=== PATIENT | male | born 1980 | race Caucasian/White ===

== ENCOUNTER → 2018-03-10 11:46 | Outpatient (CLI) | payer OTHER, SELFPAY ==
--- NOTE | 2018-03-10 | DI.CT.S_ITS ---
PROCEDURE: CT SOFT TISSUE NECK W CON INDICATIONS: FRONTAL FOREHEAD MASS TECHNIQUE: After the administration of intravenous contrast, 3.0 mm axial sections acquired from the sella to the aortic arch. Additional oblique axial 3.0 mm sections acquired through the pharynx. 3 mm thick coronal and sagittal reformats were generated. For radiation dose reduction, the following was used: automated exposure control. COMPARISON: None. FINDINGS: Image quality: Excellent. Lymph nodes: No enlarged lymph nodes seen throughout the neck. Vessels: Visualized vasculature appears patent. Neck spaces: The oropharynx, nasopharynx, and pharynx demonstrate no mucosal lesions. The vocal cords, false vocal cords, pyriform sinuses, epiglottis, vallecula, and tongue base all appear normal. Extramucosal spaces appear unremarkable. Glands: The parotid and submandibular glands appear normal. Thyroid gland contains a partially calcified 1.1 cm diameter nodule in the left lobe. Miscellaneous: Visualized brain and orbits appear normal. Lung apices appear clear. Superficial soft tissues appear normal. Bones: No suspicious bony lesions. Visualized sinuses and mastoids appear unremarkable. IMPRESSION: 1. No abnormal mass identified. 2. No lymphadenopathy based on size criteria. 3. 1.1 cm partially calcified left thyroid nodule. Dictated by: Awilda Davis MD, PhD on 03/10/2018 at 17:23 Approved by: Awilda Davis MD, PhD on 03/10/2018 at 17:30
--- NOTE | 2018-03-10 12:30 | DI.CT.S_ITS ---
PROCEDURE: CT HEAD/BRAIN WO/W CON INDICATIONS: frontal forehead mass TECHNIQUE: 4.5 mm thick angled axial sections acquired from the foramen magnum to the vertex before and after the administration of intravenous contrast, with coronal and sagittal reformats. For radiation dose reduction, the following was used: automated exposure control, adjustment of mA and/or kV according to patient size. COMPARISON: None. FINDINGS: Image quality: Excellent. CSF Spaces: Basal cisterns are patent. No extra-axial fluid collections. Ventricles are normal in size and shape. Brain: No midline shift. No intracranial bleeds or masses. No abnormal intracranial enhancement. Dowell-white interface appears normal. Skull and face: Calvarium and visualized facial bones appear intact, without suspicious lesions. There is a 0.7 x 2.6 x 2.1 cm left paramedian scalp lesion deep to a metallic BB localizer placed on clinically palpable forehead mass. The lesion is a subgaleal. Lesion demonstrates density measurements of -103 Hounsfield units. No postcontrast enhancement is associated lesion. No bony destruction or bony remodeling is associated lesion. Sinuses: Visualized sinuses and mastoids are clear. IMPRESSION: 0.7 x 2.6 x 2.1 cm left forehead lesion corresponds to clinically palpable mass. Lesion has imaging characteristics most compatible with subgaleal lipoma. Dictated by: Awilda Davis MD, PhD on 03/10/2018 at 17:40 Approved by: Awilda Davis MD, PhD on 03/10/2018 at 17:48
== END ==
PROVIDERS: PCP Student in an Organized Health Care Education/Training Program; Visit Provider Surgery
DX: R22.0 Localized swelling, mass and lump, head (principal); E04.1 Nontoxic single thyroid nodule
CPT/HCPCS: 70470; 70491; Q9967

== ENCOUNTER 2018-06-02 08:53 | Day surgery (SDC) | payer OTHER, SELFPAY ==
[2018-06-02] VITALS (9 sets, daily range): BP systolic 109–131; BP diastolic 63–87; PULSE 66–94; RESP 9–16; TEMP 36.2–37.1; O2SAT 94–99; BMI 32.7
--- NOTE | 2018-06-02 | PATH_ITS ---
[facility] Accession Number: [id number] . 01 Material submitted: . LEFT FOREHEAD . 01 Clinical history: . SUBGALEAL MASS . 02 Diagnosis: Tissue From Left Side of Forehead: Lipoma, negative for significant atypia. MRV/06/05/2018 . 02 Electronically signed: . Hudson Molina MD, Pathologist NPI- [id number] . 01 Gross description: . Received in formalin, labeled left forehead subgaleal mass, is a piece of pale harris-yellow rubbery adipose tissue (2.8 x 2.3 x 0.6 cm) with a homogeneous unremarkable cut surface. The tissue is inked black. Wire Frame Lampshade Maker serial sections submitted in cassette A1. ([id number]) Additional sections: (A2, A3) remaining tissue. Specimen is now entirely submitted. ([id number]) /MRV . 02 Pathologist provided ICD-10: D17.0 . 02 CPT . 195809 Performed at: 01 [facility] [address] [id number] MD Shane Miranda MD Phone: [phone] Performed at: [facility] [address] [place], [place] [id number] MD Ryan Kim MD Phone: [phone]
[2018-06-02] MEDS: LACTATED RINGERS 1,000 ML 42 ML IV (09:21)
--- NOTE | 2018-06-02 09:47 | PM.HP.1 ---
History of Present Illness Date Patient Seen: 06/02/18 Time Patient Seen: 09:48 Chief complaint: excision forhead mass Narrative: 38-year-old otherwise healthy male with enlarging subcutaneous cystic mass of the forehead which is now causing pain, discomfort, and occasional dysesthesias. CT scan revealed no intracranial component or involvement with the periosteum. No paralysis of facial muscles or weakness of facial muscles. No change in vision. No drainage from the area. Patient History Family & Social History Social History: household members spouse,children Tobacco & Substance use: Smoking Status Never smoker alcohol intake current Meds Home Medications Medication Instructions Recorded Confirmed Type fluticasone 50 mcg/actuation nasal 1 spray NASAL DAILY PRN 02/25/18 05/22/18 History spray,suspension ibuprofen PO 02/25/18 02/25/18 History Allergies Allergy/AdvReac Type Severity Reaction Status Date / Time No Known Drug Allergies Allergy Unverified 03/23/18 17:10 Review of Systems Review of Systems All systems reviewed & are unremarkable except as noted in HPI and below Exam Vital Signs (past 8 hours): - 06/02/18 09:04 Temperature 97.2 F L Pulse Rate 68 Respiratory Rate 16 Blood Pressure 125/68 Pulse Oximetry 95 Oxygen Delivery Method Room Air Narrative Exam Narrative: Patient once again seen and examined today. Alert oriented x3. Subcutaneous mass is unchanged in the left frontal forehead region just below the hairline. Cranial nerves 2-12 are grossly intact bilaterally. Lesion is mobile. no parotid masses or lymphadenopathy no cervical lymphadenopathy or masses. Trachea is midline. Chest clear to auscultation bilaterally. Regular rate rhythm abdomen soft, nondistended, nontender extremities show no clubbing, cyanosis, or edema Objective Labs Labs: no new laboratory or radiographic studies for review. CT scan is as above. Of note, he did have a calcified left thyroid nodule. I have discussed this with him. Assessment & Plan Plan: Assessment/Plan Narrative: 38-year-old male with symptomatic enlarging subcutaneous cystic mass of the left forehead region. We will plan excision of the mass. He will subsequently require evaluation with ultrasound-guided fine-needle aspiration biopsy of the thyroid mass once he is healed from the forehead procedure. Technical details of the procedures were discussed at length. Risks, benefits, alternatives were explained. Risks of excision of the forehead mass including but not limited to anesthesia, bleeding, hematoma, seroma, pain, infection, scar, cosmetic deformity, recurrent mass, frontalis muscle paralysis, injury to facial nerve branches including those involving the eyelid, permanent numbness, need for further surgery were discussed in detail. All questions were answered to his satisfaction, and he voiced understanding. Consent was placed on the chart. We will proceed as above.
[2018-06-02] MEDS: CEFAZOLIN 2 GM/100 ML FROZ.PIGGY IV (09:55)
[2018-06-02] MEDS: LIDOCAINE 1% W/EPI INJ 20 ML INJ (10:31)
[2018-06-02] MEDS: BUPIVACAINE 0.5% (PF) VIAL 30 ML INJ (10:32)
--- NOTE | 2018-06-02 11:21 | P.OP_ITS ---
Operative Date/Time/Diagnoses Date of procedure: 06/02/18 Time of procedure: 11:15 Pre-op diagnosis: symptomatic subcutaneous mass left forehead region Post-op diagnosis: other ( symptomatic left forehead subgaleal mass measuring 3 x 3 cm in greatest diameter) Procedure & Clinicians Procedure: excision of 3 x 3 x 2 cm subgaleal mass left forehead region Same procedure as scheduled: Yes Indications: 38-year-old male with slowly enlarging subcutaneous mass of left forehead. Excision was recommended after CT scan showed no intracranial or bony involvement. Surgeon: Massimo Palmer Click Yes if Unassisted: Yes Anesthesia Type: General Operative Notes Findings: 1. Encapsulated subgaleal mass that was actually somewhat adherent to the periosteum of the frontal bone measuring 3 x 3 x 2 cm 2. No evidence of skin invasion or muscular invasion of the frontalis muscle 3. No evidence of adjacent lesions or abnormalities Closure Type: primary Specimen(s): other ( left forehead subgaleal mass) Implants & Drains: none Estimated Blood Loss (mL): 5 Blood products transfused: none Procedure in detail: after obtaining informed consent the patient was brought to the operating room and placed supine on the table. After satisfactory induction of anesthesia the table was turned 90? with the left side out. Left forehead was prepped and draped in usual sterile fashion. SCOAP time out was performed per standard protocol. Transverse incision was designed in the existing skin crease overlying the mass and the area was infiltrated with a 1 : 1 mixture 1% lidocaine containing 1 :100,000 epinephrine and 0.5% plain Marcaine for postoperative analgesia and hemostasis. After appropriate time by the clock to allow the epinephrine to be effective the skin incision was created with 15 scalpel blade. Bipolar cautery exclusively was used to obtain hemostasis. Meticulous sharp dissection was used with tenotomy scissors in order to completely remove the mass which was noted to be deep to the frontalis muscle and galea. Findings are otherwise as above. Lesion was excised in its entirety without violating the capsule. Specimen was sent for permanent section. Wound was irrigated hemostasis achieved with bipolar cautery. Wound was again irrigated and noted to be hemostatic. Muscle and subcutaneous tissue were reapproximated with interrupted 3 0 Vicryl suture. Skin was closed in running subcuticular fashion with 4 0 Monocryl suture. Dermal adhesive was applied. Anesthesia was reversed the patient extubated in the operating room. He was taken recovery stable condition. Complications: none Condition: stable Disposition: PACU Plan for aftercare: 1. Discharge home 2. Follow up in surgery Clinic in 2 weeks
--- NOTE | 2018-06-02 15:26 | SUR.PHASEII ---
late entry: pt brought to opd, called, will come after picks child up from school. ice placed to fore head, incision intact. d/c instructions discussed with both when arrived. pt left when ready and left in stable condition.
== END 2018-06-02 12:20 | disposition home or self-care (01) ==
PROVIDERS: PCP Student in an Organized Health Care Education/Training Program; Visit Provider Surgery
PROC: (CPT 21014; principal; 2018-06-02 10:00)
DX: D17.0 Benign lipomatous neoplasm of skin and subcutaneous tissue of head, face and neck (principal); R51 Headache; R20.8 Other disturbances of skin sensation
CPT/HCPCS: 21014; J0690; J1100; J2250; J2405; J2704; J3010

== ENCOUNTER → 2018-06-17 15:49 | Outpatient (CLI) | payer OTHER, SELFPAY ==
[2018-06-17 17:05] LABS: BUN Creatinine Ratio 14.4 (6-22); Blood Urea Nitrogen 13 mg/dL (9-20); Calcium 9.4 mg/dL (8.4-10.2); Carbon Dioxide 26 mmol/L (22-32); Chloride 105 mmol/L (98-107); Estimated Glomerular Filt Rate > 60.0 mL/min (>60); Glucose 87 mg/dL (70-100); HEMOLYSIS < 15 (0-50); Potassium 4.2 mmol/L (3.4-5.1); Sodium 144 mmol/L (137-145)
[2018-06-17 17:22] LABS: Free T3, Triiodothyronine Free 3.78 pg/mL (2.77-5.27)
[2018-06-17 17:36] LABS: TSH w/ Reflex to FT4 1.36 uIU/mL (0.47-4.68)
[2018-06-19 18:45] LABS: Ionized Calcium 5.2 mg/dL (4.8-5.6)
== END ==
PROVIDERS: PCP Student in an Organized Health Care Education/Training Program; Visit Provider Surgery
DX: E04.1 Nontoxic single thyroid nodule (principal)
CPT/HCPCS: 36415; 80048; 82330; 84443; 84481

== ENCOUNTER → 2018-07-28 11:18 | Outpatient (CLI) | payer OTHER, SELFPAY ==
--- NOTE | 2018-07-28 11:19 | DI.US.S_ITS ---
PROCEDURE: US THYROID INDICATIONS: LEFT THYROID NODULE TECHNIQUE: Real-time scanning was performed of the thyroid gland, with image documentation. COMPARISON: None. FINDINGS: Right: Thyroid lobe measures 5.6 x 1.5 x 1.9 cm, and is homogeneous in echotexture. Left: Thyroid lobe measures 4.8 x 1.5 x 1.8 cm, and is homogenous in echotexture. Isthmus: 3.0 mm thick. Nodule number: 1 Location: Right inferior Size: 0.9 x 0.7 x 0.8 cm. Composition: Mixed cystic and solid Echogenicity: Isoechoic Shape: Wider than tall Margins: Smooth Echogenic foci: Internal punctate echogenic foci Total points: 5 ACR TI-RADS category: Moderately suspicious Nodule number: 2 Location: Left inferior Size: 1.4 x 0.7 x 0.8 cm. Composition: Solid Echogenicity: Hyperechoic Shape: wider than tall. Margins: Irregular Echogenic foci: Macrocalcifications Total points: 4 ACR TI-RADS category: Moderately suspicious Nodule number: 3 Location: Left superior Size: 0.4 x 0.3 x 0.4 cm. Composition: Mixed cystic and solid Echogenicity: Hypoechoic Shape: wider than tall. Margins: Smooth Echogenic foci: None Total points: 3 ACR TI-RADS category: Mildly suspicious IMPRESSION: Bilateral thyroid nodules as above. No fine-needle aspiration is recommended at this time. Recommend continued followup as detailed below. ACR TI-RADS definitions and recommendations: TI-RADS 1 (benign): 0 points. FNA not needed. TI-RADS 2 (not suspicious): 2 points. FNA not needed. TI-RADS 3 (mildly suspicious): 3 points. * FNA if 2.5 cm or larger, follow up if 1.5 cm or larger (at 1, 3, and 5 years). TI-RADS 4 (moderately suspicious): 4-6 points. * FNA if 1.5 cm or larger, follow up if 1 cm or larger (at 1, 2, 3, and 5 years). TI-RADS 5 (highly suspicious): 7 points or more. * FNA if 1 cm or larger, follow up if 0.5 cm or larger (every year for 5 years). Dictated by: Raymon DEWEY Interpreted: Sarah Ernandez MD on 07/28/2018 at 12:57 Approved by: Sarah Ernandez M.D. on 07/28/2018 at 14:46
== END ==
PROVIDERS: PCP Student in an Organized Health Care Education/Training Program; Visit Provider Surgery
DX: E04.2 Nontoxic multinodular goiter (principal)
CPT/HCPCS: 76536

== ENCOUNTER → 2019-09-21 08:25 | Outpatient (CLI) | payer OTHER, SELFPAY ==
[2019-09-21 09:31] LABS: Add Manual Diff / Slide Review NO; Basophils Absolute Auto 0 /uL (0-100); Basophils Percent Auto 0.6 % (0-2); Eosinophils Absolute Auto 300 /uL (0-450); Eosinophils Percent Auto 4.6 % (2-4); Hematocrit 44.1 % (41-53); Hemoglobin 15.5 g/dL (13.5-17.5); Lymphocytes Absolute Auto 2800 /uL (1100-4500); Lymphocytes Percent Auto 38.5 % (25-40); Mean Corpuscular HGB Conc 35.1 % (30-36); Mean Corpuscular Hemoglobin 29.9 PG (26-34); Mean Corpuscular Volume 85.1 fL (80-100); Monocytes Absolute Auto 500 /uL (0-900); Neutrophils Absolute Auto 3600 /uL (1500-7000); Neutrophils Percent Auto 49.3 % (50-75); Platelet Count 286 X10^3/uL (150-400); Red Blood Cell Count 5.19 X10^6/uL (4.5-5.9); Red Cell Distribution Width 13.6 % (11.6-14.8); White Blood Cell Count 7.2 X10^3/uL (4.5-11.0)
[2019-09-21 09:43] LABS: Alanine Aminotransferase 48 IU/L (<50); Albumin 4.4 g/dL (3.5-5.0); Albumin Globulin Ratio 1.4 (1.0-2.8); Alkaline Phosphatase 58 U/L (38-126); Aspartate Aminotransferase 31 IU/L (17-59); Bilirubin Total 0.3 mg/dL (0.2-1.3); Blood Urea Nitrogen 16 mg/dL (9-20); Calcium 9.2 mg/dL (8.4-10.2); Carbon Dioxide 25 mmol/L (22-32); Chloride 106 mmol/L (98-107); Cholesterol 159 mg/dL (140-199); Estimated Glomerular Filt Rate > 60.0 mL/min (>60); Globulin 3.2 g/dL (1.7-4.1); Glucose 104 mg/dL (70-100); HDL Cholesterol 37 mg/dL (40-60); HEMOLYSIS < 15 (0-50); LDL Cholesterol Calculated 91 mg/dL (<100); Potassium 3.8 mmol/L (3.4-5.1); Sodium 142 mmol/L (137-145); Total Protein 7.6 g/dL (6.3-8.2); Triglycerides 157 mg/dL (35-150)
== END ==
PROVIDERS: PCP Student in an Organized Health Care Education/Training Program; Referring Provider Student in an Organized Health Care Education/Training Program; Visit Provider Student in an Organized Health Care Education/Training Program
DX: Z00.00 Encounter for general adult medical examination without abnormal findings (principal); Z13.220 Encounter for screening for lipoid disorders; Z13.228 Encounter for screening for other metabolic disorders
CPT/HCPCS: 36415; 80053; 80061; 85025

== ENCOUNTER → 2020-12-21 10:52 | Outpatient (CLI) | payer OTHER, SELFPAY ==
[2020-12-21] MEDS: COVID-19 VACC #1, MRNA(MOD) 100 MCG/0.5 ML VIAL IM (11:00)
== END ==
PROVIDERS: PCP Student in an Organized Health Care Education/Training Program; Visit Provider Internal Medicine
DX: Z23 Encounter for immunization (principal)
CPT/HCPCS: 0011A; 91301

== ENCOUNTER → 2021-01-26 15:28 | Outpatient (CLI) | payer OTHER, SELFPAY ==
[2021-01-26] MEDS: COVID-19 VACC #2, MRNA(MOD) 100 MCG/0.5 ML VIAL IM (15:40)
== END ==
PROVIDERS: PCP Student in an Organized Health Care Education/Training Program; Visit Provider Internal Medicine
DX: Z23 Encounter for immunization (principal)
CPT/HCPCS: 0012A; 91301

== ENCOUNTER 2022-08-27 00:26 | Observation (INO) | payer OTHER, SELFPAY ==
[2022-08-27] VITALS (31 sets, daily range): BP systolic 101–174; BP diastolic 56–113; PULSE 46–78; RESP 11–35; TEMP 36.2–36.8; O2SAT 90–98; BMI 32.1
--- NOTE | 2022-08-27 | PATH_ITS ---
[facility] Accession Number: [id number] . 01 Material submitted: . gallbladder - GALLBLADDER . 01 Diagnosis: Gallbladder, Cholecystectomy: Chronic cholecystitis and cholelithiasis. One benign lymph node. MRV 08/29/2022 1556 Local . 01 Electronically signed: . Maria E Burdick MD, Pathologist NPI- [id number] . 01 Gross description: . The specimen is received in formalin labeled with the patient's name, , and gallbladder, and consists of a previously opened gallbladder measuring 9.9 x 4.6 x 2.3 cm. The serosa is harris-yellow and smooth, and the hepatic surface is rough and unremarkable. The cystic duct is received closed with a clamp, is inked blue, and a harris lymph node candidate is identified measuring 0.6 cm in greatest dimension. The lumen contains a small amount of green viscous bile, and within the container are multiple yellow-orange faceted calculi measuring up to 1.9 cm in greatest dimension. The mucosa is green, velvety, and diffusely congested with no pinpoint yellow areas of discoloration, polyps or lesions identified. The mueller average 0.5 cm thick. Sheeter Waxer Operator sections to include the cystic duct margin, lymph node candidate, and full-thickness sections are submitted in cassettes A1-A2. ([id number]) /MRV 08/28/2022 1725 Local . 01 Pathologist provided ICD-10: K80.10 . 01 CPT . 734728 Specimen Comment: A courtesy copy of this report has been sent to [phone] Performed at: 01 [facility] [address] [place] [address] [address] [facility], [place], [place] [id number] MD Shane Miranda MD Phone: [phone]
[2022-08-27 01:23] LABS: Add Manual Diff / Slide Review NO; Basophils Absolute Auto 0 /uL (0-100); Basophils Percent Auto 0.2 % (0-2); Eosinophils Absolute Auto 200 /uL (0-450); Eosinophils Percent Auto 2.3 % (2-4); Hematocrit 42.9 % (41-53); Hemoglobin 14.8 g/dL (13.5-17.5); Lymphocytes Absolute Auto 2100 /uL (1100-4500); Lymphocytes Percent Auto 22.5 % (25-40); Mean Corpuscular HGB Conc 34.5 % (30-36); Mean Corpuscular Hemoglobin 29.3 PG (26-34); Mean Corpuscular Volume 84.9 fL (80-100); Monocytes Absolute Auto 500 /uL (0-900); Monocytes Percent Auto 5.6 % (3-14); Neutrophils Absolute Auto 6400 /uL (1500-7000); Neutrophils Percent Auto 69.4 % (50-75); Platelet Count 258 X10^3/uL (150-400); Red Blood Cell Count 5.05 X10^6/uL (4.5-5.9); Red Cell Distribution Width 14.2 % (11.6-14.8); White Blood Cell Count 9.3 X10^3/uL (4.5-11.0)
[2022-08-27 01:28] LABS: Prothrombin Time 10.9 SECONDS (10.1-12.7)
[2022-08-27 01:31] LABS: PTT Partial Thromboplastin Tim 31 SECONDS (26-36)
[2022-08-27 01:32] LABS: Alanine Aminotransferase 43 IU/L (<50); Albumin 4.7 g/dL (3.5-5.0); Albumin Globulin Ratio 1.4 (1.0-2.8); Alkaline Phosphatase 65 U/L (38-126); Aspartate Aminotransferase 31 IU/L (17-59); BUN Creatinine Ratio 17.3 (6-22); Bilirubin Total 0.5 mg/dL (0.2-1.3); Blood Urea Nitrogen 17 mg/dL (9-20); Calcium 8.8 mg/dL (8.4-10.2); Carbon Dioxide 30 mmol/L (22-32); Chloride 101 mmol/L (98-107); Creatine Kinase 164 U/L (55-170); Estimated Glomerular Filt Rate > 60 mL/min (>60); Globulin 3.3 g/dL (1.7-4.1); Glucose 112 mg/dL (70-100); HEMOLYSIS < 15 (0-50); Lipase 96 U/L (23-300); Magnesium 2.1 mg/dL (1.6-2.3); Potassium 3.8 mmol/L (3.4-5.1); Sodium 143 mmol/L (137-145)
[2022-08-27 01:44] LABS: NT-proBNP (BNP-Adult 18+) 29 pg/mL (<125); Troponin I < 0.012 ng/mL (0.01-0.034)
[2022-08-27 01:47] LABS: CKMB % Relative Index 0.7 % (1.5-5.0)
--- NOTE | 2022-08-27 01:58 | ED.ABDPAIN ---
HPI - Abdominal Pain General Chief Complaint: Abdominal Pain Stated Complaint: SEVERE ABD PAIN, FEVER, VOMITING, BACK PAIN Time Seen by Provider: 08/27/22 00:31 Source: patient Mode of arrival: Ambulatory History of Present Illness HPI narrative: 42-year-old male nonsmoker with noncontributory medical history presents with his in the chief complaint of an episode of severe epigastric pain with radiation to his back that started earlier today. He states the pain was quite severe and made him feel sweaty and lightheaded. He states the pain was made worse by motion and also by vomiting. He states it seemed to go away without any obvious palliation. He denies any fever or chills. He denies any chest pain or shortness of breath. He denies any dietary change or new medications. He states he had a similar episode over the weekend had a similar-type pain with radiation to his back but was not associated with vomiting. He denies any dysuria, frequency or urgency Related Data Home Medications Medication Instructions Recorded Confirmed fluticasone propionate 50 1 spray intranasal DAILY PRN 02/25/18 08/27/22 mcg/actuation nasal allergy symptoms spray,suspension (Flonase Allergy Relief) ibuprofen 200 mg PO PRN PRN Pain (Scale 02/25/18 08/27/22 Score 1-3) Previous Rx's Medication Instructions Recorded hydrocodone 5 mg-acetaminophen 325 1 tab PO Q4H PRN Pain, Moderate 08/27/22 mg tablet (4-6) #20 tabs Allergies Allergy/AdvReac Type Severity Reaction Status Date / Time No Known Drug Allergies Allergy Verified 08/27/22 13:37 Review of Systems Review of Systems Narrative: GENERAL: Denies chills, fatigue, malaise, fever, sweats. HEENT: Denies sinus pain, ear pain, sore throat, difficulty swallowing, dizziness. RESPIRATORY: Denies dyspnea, cough, wheezing, hemoptysis, sputum. CARDIOVASCULAR: Denies chest pain, palpitations, orthopnea, edema, GASTROINTESTINAL: See HPI : Denies dysuria, frequency, incontinence, hematuria, urinary retention. MUSCULOSKELETAL: denies weakness, joint pain, or bony pain SKIN: Denies rash, skin lesions, or other NEUROLOGIC: Denies weakness, headache, numbness, change in speech, confusion, seizures, incoordination. PSYCHIATRIC: No concerning psychosocial issues. 12 point review of systems is negative except for those stated above Patient History Medical History (Updated 08/27/22 @ 15:13 by Natasha Odell RN) Allergic rhinitis Seasonal allergies Subcutaneous mass of head Surgical History H/O inguinal hernia repair H/O wisdom tooth extraction History of inguinal hernia repair Family History Mother Hypertension Heart disease Diabetes mellitus Grandmother Hypertension Heart disease Diabetes mellitus Father Cancer Heart disease Social History marital status: household members: spouse and children Smoking Status: Never smoker alcohol intake: current Smoking Status: Never smoker alcohol intake frequency: a few times a week Alcohol type: beer and wine Substance Use Type: marijuana Exam Narrative Exam Narrative: GENERAL: [42] year old patient appears stated age. Well-developed patient, in significant distress, obviously in pain, holding an emesis bag HEAD: Atraumatic. Normocephalic. EYES: Pupils equal round and reactive. Extraocular motions intact. No scleral icterus. No injection or drainage. ENT: Nose without bleeding, purulent drainage. Throat without erythema, tonsillar hypertrophy or exudate. Airway patent. NECK: Trachea midline. Non tender CARDIOVASCULAR: Regular rate and rhythm without murmurs, gallops, or rubs. RESPIRATORY: Clear to auscultation. Breath sounds equal bilaterally. No wheezes, rales, or rhonchi. GASTROINTESTINAL: Abdomen soft, epigastric pain, nondistended. EXTREMITIES: No edema or joint tenderness. BACK: Nontender without deformity or crepitance. No flank tenderness. NEURO: AOx3. SKIN: No rash or erythema of visible areas Initial Vital Signs Initial Vital Signs: Vital Signs Pulse Rate 46 L 08/27/22 00:33 Respiratory Rate 18 08/27/22 00:33 Blood Pressure 140/87 08/27/22 00:33 Pulse Oximetry 98 08/27/22 00:33 Oxygen Delivery Method 08/27/22 00:33 Course Orders Ordered: Discontinued Medications Acetaminophen (Acetaminophen 325 Mg Tablet) 650 mg PO Q6H TEMI Last Admin: 08/27/22 09:13 Dose: Not Given Documented By: CTS Hydrocodone Bitart/Acetaminophen (Hydrocodone/Acet 5/325 Tablet) 1 tab PO Q4H PRN PRN Reason: Pain, Moderate (4-6) Bupivacaine HCl/Epinephrine Bitart (Bupivacaine 0.5% W/ Epi (Pf) 30 Ml Vial) 30 ml INJ NOW ONE Stop: 08/27/22 14:41 Last Admin: 08/27/22 14:40 Dose: 30 ml Documented By: PF Cefazolin Sodium (Cefazolin 1 Gm Vial) 1 gm IRR INTRA-OP ONE Stop: 08/27/22 06:55 Last Admin: 08/27/22 14:15 Dose: 2 gm Documented By: RA Fentanyl (Fentanyl 100 Mcg/2 Ml Inj) 0 mcg IV Q5M PRN PRN Reason: Pain, Moderate (4-6) Hydromorphone HCl (Hydromorphone 2 Mg Inj) 0 mg IV Q5M PRN PRN Reason: Pain, Moderate (4-6) Sodium Chloride (Normal Saline 0.9%) 1,000 mls @ 1,000 mls/hr IV BOLUS ONE Stop: 08/27/22 01:59 Last Infusion: 08/27/22 07:17 Dose: 0 mls/hr Documented By: Admin: 08/27/22 02:05 Dose: 1,000 mls/hr Documented By: GC Piperacillin Sod/Tazobactam (Sod 4.5 gm/ Sodium Chloride) 100 mls @ 200 mls/hr IV NOW ONE Stop: 08/27/22 03:12 Last Infusion: 08/27/22 07:17 Dose: 0 mls/hr Documented By: Admin: 08/27/22 03:36 Dose: 200 mls/hr Documented By: AP Lactated Ringer's (Lactated Ringers) 1,000 mls @ 100 mls/hr IV CONT TEMI Last Admin: 08/27/22 09:21 Dose: 100 mls/hr Documented By: CTS Lactated Ringer's (Lactated Ringers) 1,000 mls @ 42 mls/hr IV CONT TEMI Last Infusion: 08/27/22 16:15 Dose: 0 mls/hr Documented By: Admin: 08/27/22 13:39 Dose: 42 mls/hr Documented By: CG Lactated Ringer's (Lactated Ringers) 1,000 mls @ 42 mls/hr IV CONT TEMI Ibuprofen (Ibuprofen 600 Mg Tablet) 600 mg PO Q6H TEMI Last Admin: 08/27/22 09:13 Dose: Not Given Documented By: MOI Naloxone HCl (Naloxone 0.4 Mg/Ml Vial) 0.2 mg IV Q2MIN PRN PRN Reason: Opiate Reversal Ondansetron HCl (Ondansetron 4 Mg/2 Ml Inj) 4 mg IV NOW ONE Stop: 08/27/22 01:01 Last Admin: 08/27/22 02:01 Dose: 4 mg Documented By: SUSHMA Ondansetron HCl (Ondansetron 4 Mg/2 Ml Inj) 4 mg IV Q8HR PRN PRN Reason: Nausea And Vomiting Ondansetron HCl (Ondansetron 4 Mg/2 Ml Inj) 4 mg IV NOW PRN PRN Reason: Nausea And Vomiting Oxycodone/Acetaminophen (Oxycodone/Acetaminophen 5/325 Tablet) 1 tab PO PACUNOW PRN PRN Reason: Mild or Moderate Pain Last Admin: 08/27/22 16:14 Dose: 1 tab Documented By: SHU Pantoprazole Sodium (Pantoprazole 40 Mg Vial) 40 mg IV NOW ONE Stop: 08/27/22 01:01 Last Admin: 08/27/22 02:01 Dose: 40 mg Documented By: SUSHMA Scopolamine (Scopolamine 1 Patch) 1 patch TOP NOW ONE Stop: 08/27/22 06:59 Last Admin: 08/27/22 09:18 Dose: 1 patch Documented By: MOI Reevaluation(s) Reevaluation #1: Patient has significant if not complete resolution of symptoms after Zofran, pantoprazole and fluids Time: 01:35 Consultations Consultation #1: Discussed with on-call surgery (Prosper) upon receipt of gallbladder ultrasound, she will admit and take to OR later today Vital Signs Vital signs: Vital Signs - 8 hr 08/27/22 00:33 08/27/22 02:50 08/27/22 03:00 Pulse Rate 46 L 60 54 L Respiratory Rate 18 35 H 14 Blood Pressure 140/87 Pulse Oximetry 98 97 97 Oxygen Delivery Method Room Air 08/27/22 03:17 08/27/22 03:17 08/27/22 03:30 Pulse Rate 59 L 51 L Respiratory Rate 35 H Blood Pressure 109/64 Pulse Oximetry 96 96 Oxygen Delivery Method 08/27/22 04:00 08/27/22 04:00 08/27/22 04:30 Pulse Rate 57 L 55 L Respiratory Rate 16 Blood Pressure 108/70 Pulse Oximetry 95 94 Oxygen Delivery Method 08/27/22 05:00 08/27/22 05:30 Pulse Rate 78 54 L Respiratory Rate 31 H 14 Blood Pressure Pulse Oximetry 94 93 Oxygen Delivery Method MDM - Abdominal Pain Lab Data Result diagrams: 08/27/22 00:59 08/27/22 00:59 Labs: Lab Results 08/27/22 08/27/22 08/27/22 Range/Units 00:59 00:59 00:59 WBC 9.3 (4.5-11.0) X10^3/uL RBC 5.05 (4.5-5.9) X10^6/uL Hgb 14.8 (13.5-17.5) g/dL Hct 42.9 (41-53) % MCV 84.9 (80-100) fL MCH 29.3 (26-34) PG MCHC 34.5 (30-36) % RDW 14.2 (11.6-14.8) % Plt Count 258 (150-400) X10^3/uL Neut % (Auto) 69.4 (50-75) % Lymph % (Auto) 22.5 L (25-40) % [place] % (Auto) 5.6 (3-14) % Eos % (Auto) 2.3 (2-4) % Baso % (Auto) 0.2 (0-2) % Neut # (Auto) 6400 (4109-4497) /uL Lymph # (Auto) 2100 (4085-5444) /uL [place] # (Auto) 500 (0-900) /uL Eos # (Auto) 200 (0-450) /uL Baso # (Auto) 0 (0-100) /uL PT (10.1-12.7) SECONDS INR (0.9-1.3) APTT (26-36) SECONDS Sodium 143 (137-145) mmol/L Potassium 3.8 (3.4-5.1) mmol/L Chloride 101 (98-107) mmol/L Carbon Dioxide 30 (22-32) mmol/L BUN 17 (9-20) mg/dL Creatinine 0.98 (0.66-1.25) mg/dL Estimated GFR > 60 (>60) mL/min BUN/Creatinine Ratio 17.3 (6-22) Glucose 112 H (70-100) mg/dL Lactate 1.0 (0.7-2.1) mmol/L Calcium 8.8 (8.4-10.2) mg/dL Magnesium (1.6-2.3) mg/dL Total Bilirubin 0.5 (0.2-1.3) mg/dL AST 31 (17-59) IU/L ALT 43 (<50) IU/L Alkaline Phosphatase 65 (38-126) U/L Total Creatine Kinase (55-170) U/L CK-MB (CK-2) (<2.37) ng/mL CK-MB (CK-2) Rel Index (1.5-5.0) % Troponin I (0.01-0.034) ng/mL NT-Pro-B Natriuret Pep (<125) pg/mL Total Protein 8.0 (6.3-8.2) g/dL Albumin 4.7 (3.5-5.0) g/dL Globulin 3.3 (1.7-4.1) g/dL Albumin/Globulin Ratio 1.4 (1.0-2.8) Lipase 96 (23-300) U/L SARS-CoV-2 (PCR) (Negative) Influenza A (RT-PCR) (NEGATIVE) Influenza B (RT-PCR) (NEGATIVE) RSV (PCR) (Negative) 08/27/22 08/27/22 08/27/22 Range/Units 00:59 00:59 00:59 WBC (4.5-11.0) X10^3/uL RBC (4.5-5.9) X10^6/uL Hgb (13.5-17.5) g/dL Hct (41-53) % MCV (80-100) fL MCH (26-34) PG MCHC (30-36) % RDW (11.6-14.8) % Plt Count (150-400) X10^3/uL Neut % (Auto) (50-75) % Lymph % (Auto) (25-40) % [place] % (Auto) (3-14) % Eos % (Auto) (2-4) % Baso % (Auto) (0-2) % Neut # (Auto) (5619-5430) /uL Lymph # (Auto) (7516-3619) /uL [place] # (Auto) (0-900) /uL Eos # (Auto) (0-450) /uL Baso # (Auto) (0-100) /uL PT 10.9 (10.1-12.7) SECONDS INR 1.0 (0.9-1.3) APTT 31 (26-36) SECONDS Sodium (137-145) mmol/L Potassium (3.4-5.1) mmol/L Chloride (98-107) mmol/L Carbon Dioxide (22-32) mmol/L BUN (9-20) mg/dL Creatinine (0.66-1.25) mg/dL Estimated GFR (>60) mL/min BUN/Creatinine Ratio (6-22) Glucose (70-100) mg/dL Lactate (0.7-2.1) mmol/L Calcium (8.4-10.2) mg/dL Magnesium 2.1 (1.6-2.3) mg/dL Total Bilirubin (0.2-1.3) mg/dL AST (17-59) IU/L ALT (<50) IU/L Alkaline Phosphatase (38-126) U/L Total Creatine Kinase 164 (55-170) U/L CK-MB (CK-2) 1.20 (<2.37) ng/mL CK-MB (CK-2) Rel Index 0.7 L (1.5-5.0) % Troponin I < 0.012 (0.01-0.034) ng/mL NT-Pro-B Natriuret Pep 29 (<125) pg/mL Total Protein (6.3-8.2) g/dL Albumin (3.5-5.0) g/dL Globulin (1.7-4.1) g/dL Albumin/Globulin Ratio (1.0-2.8) Lipase (23-300) U/L SARS-CoV-2 (PCR) Negative (Negative) Influenza A (RT-PCR) Flu a negative (NEGATIVE) Influenza B (RT-PCR) Flu b negative (NEGATIVE) RSV (PCR) Negative (Negative) Point of care testing: Urine Dip Bedside Urine Glucose Negative Bedside Urine Bilirubin - Negative Bedside Urine Ketone - Negative Urine Specific [place] 1.015 Bedside Urine Occult Blood - Negative Bedside Urine pH 6.0 Bedside Urine Protein - Negative Bedside Urine Urobilinogen - Negative Bedside Urine Nitrite - Negative Bedside Urine Leukocytes - Negative Esterase Imaging Data US - abdomen: Radiologist's Impression: Cholelithiasis with sonographic evidence of acute cholecystitis, dilatation of common bile duct ECG Data Interpretation: 0041 EKG is normal sinus rhythm rate [55 ] and free of any signs of ischemia or ectopy. No ST segmental elevation or depression. No T wave inversions MDM Narrative Medical decision making narrative: CC: 42-year-old male with severe epigastric pain and radiation to the back associated with nausea, vomiting and diaphoresis Data collected from: Patient and Medical records reviewed: including prior H&P for surgical procedure Differential considered: Exam documented above, pertinent findings include: Lab Test results independently reviewed as above. Pertinent findings: Independently reviewed EKG as above Imaging studies independently reviewed: Abd US notes cholecystitis with large non mobile gallstones Consultations: discussed with on-call General surgery, see details above Treatments: fluids, antiemetics, antibiotics Re-evaluations: patient feeling relatively well without significant recurrence of pain Discussion: patient presented with severe epigastric pain, radiation to the back and episodes of nausea and vomiting, improves with above-stated therapies and though labs are very reassuring ultrasound demonstrates cholecystitis, patient kept NPO, given antibiotics and admitted for surgical intervention Disposition: patient admitted for surgical intervention, patient and understand and agree with diagnosis and plan Discharge Plan Departure Patient Disposition: Admitted as Observation Clinical Impression: Acute cholecystitis Admit Date/Time: 08/27/22 06:53 Admit Provider: Shama Cheng
[2022-08-27] MEDS: ONDANSETRON 4 MG/2 ML INJ IV (02:01)
[2022-08-27] MEDS: PANTOPRAZOLE 40 MG VIAL IV (02:01)
[2022-08-27] MEDS: SODIUM CHLORIDE 0.9% 1,000 ML 1000 ML IV (02:05)
--- NOTE | 2022-08-27 02:14 | DI.US.S_ITS ---
PROCEDURE: US ABDOMEN LIMITED INDICATIONS: EPIGASTRIC PAIN TECHNIQUE: Real-time scanning was performed of the abdominal and retroperitoneal organs, with image documentation. COMPARISON: None. FINDINGS: Liver: Liver is normal in size. Increased liver parenchymal echotexture is seen. No discrete hepatic lesion. Gallbladder: Gallstones are seen in dependent portion of gallbladder lumen. Thickened gallbladder wall measures 9.6 mm is seen. Small amount of pericholecystic fluid is noted. Positive sonographic Maier's sign is also noted during the study. Biliary ducts: Intrahepatic bile ducts are grossly non-dilated. Extrahepatic bile duct caliber measures 16 mm. Normal is 6-7 mm or less in diameter, or 10 mm or less post-cholecystectomy. Pancreas: Not well seen due to overlying bowel gas. IMPRESSION: 1. Cholelithiasis with sonographic evidence of acute cholecystitis. 2. Dilatation of common bile duct , no obvious choledocholithiasis. No definite intrahepatic biliary ductal dilatation. 3. Hepatic steatosis. No significant discrepancies from preliminary reading. Dictated by: Jesse Steen M.D. on 08/27/2022 at 9:01 Approved by: Jesse Steen M.D. on 08/27/2022 at 9:04
[2022-08-27 03:22] LABS: Influenza A - CEPHEID Flu A NEGATIVE (NEGATIVE); Influenza B - CEPHEID Flu B NEGATIVE (NEGATIVE); Respiratory Syncytial Virus Negative (Negative)
[2022-08-27] MEDS: PIPERACILLIN/TAZO 4.5 GM in SODIUM CHLORIDE 0.9% 100 ML IV (03:36)
[2022-08-27 03:45] LABS: COVID-19 CEPHEID 4-PLEX PCR Negative (Negative)
[2022-08-27] MEDS: SCOPOLAMINE 1 PATCH TOP (09:18)
[2022-08-27] MEDS: LACTATED RINGERS 1,000 ML 100 ML IV (09:21)
--- NOTE | 2022-08-27 09:27 | PC.NURSE ---
Rec'd report from NOC shift. Pt resting in bed sleeping. NPO. Plan for surgery at [address]. Pt denies pain at this time. scopolomine patch applied and LR infusing at 100ml/hr. Pt given gown to prep for surgery, NAD and needs met at this time.
[2022-08-27] MEDS: LACTATED RINGERS 1,000 ML 42 ML IV (13:39)
--- NOTE | 2022-08-27 13:53 | P.HP_ITS ---
History of Present Illness History of Present Illness Date Patient Seen: 08/27/22 Time Patient Seen: 06:30 Chief complaint: SEVERE ABD PAIN, FEVER, VOMITING, BACK PAIN Narrative: RUQ tenderness, back pain, nausea and vomitting. US c/w acute cliff, labs are normal. First severe episode. Patient History Medical History Allergic rhinitis Seasonal allergies Subcutaneous mass of head Surgical History H/O inguinal hernia repair H/O wisdom tooth extraction History of inguinal hernia repair Family & Social History Family History Mother Hypertension Heart disease Diabetes mellitus Grandmother Hypertension Heart disease Diabetes mellitus Father Cancer Heart disease Social History: household members spouse,children Safety & Behavioral: Feels Safe in Current Yes Environment Been Physically Hurt or No Threatened By a Person Tobacco & Substance use: Smoking Status Never smoker alcohol intake current alcohol intake frequency a few times a week Substance Use Type marijuana Meds Home Medications and Allergies Home Medications Medication Instructions Recorded Confirmed Type fluticasone propionate 50 1 spray intranasal DAILY PRN 02/25/18 08/27/22 History mcg/actuation nasal allergy symptoms spray,suspension (Flonase Allergy Relief) ibuprofen 200 mg PO PRN PRN Pain (Scale 02/25/18 08/27/22 History Score 1-3) Allergies Allergy/AdvReac Type Severity Reaction Status Date / Time No Known Drug Allergies Allergy Verified 08/27/22 13:37 Review of Systems Review of Systems ROS: Yes All systems reviewed with the patient and are negative except as other barber documented Exam Vital Signs (past 8 hours): - 08/27/22 06:00 08/27/22 06:00 08/27/22 06:30 Temperature Pulse Rate 51 L 52 L Respiratory Rate 28 H 14 Blood Pressure 101/56 L Pulse Oximetry 93 95 Oxygen Delivery Method 08/27/22 07:00 08/27/22 07:30 08/27/22 08:00 Temperature Pulse Rate 55 L 56 L Respiratory Rate 17 Blood Pressure 124/76 Pulse Oximetry 95 96 Oxygen Delivery Method 08/27/22 08:00 08/27/22 08:30 08/27/22 09:00 Temperature Pulse Rate 49 L 49 L 56 L Respiratory Rate 15 12 14 Blood Pressure Pulse Oximetry 94 93 94 Oxygen Delivery Method 08/27/22 11:00 08/27/22 11:19 08/27/22 11:19 Temperature Pulse Rate 52 L 66 Respiratory Rate 16 19 Blood Pressure 123/73 Pulse Oximetry 95 95 Oxygen Delivery Method Room Air Room Air 08/27/22 11:30 08/27/22 12:01 08/27/22 12:30 Temperature Pulse Rate 54 L 66 61 Respiratory Rate 15 16 20 Blood Pressure Pulse Oximetry 95 98 96 Oxygen Delivery Method Room Air Room Air Room Air 08/27/22 12:58 08/27/22 12:58 08/27/22 13:40 Temperature 98.2 F Pulse Rate 66 70 Respiratory Rate 18 16 Blood Pressure 128/79 128/80 Pulse Oximetry 97 98 Oxygen Delivery Method Room Air Room Air Oxygen Delivery Method Room Air Narrative Exam Narrative: Still uncomfortable and agrees to lap cliff Const General: cooperative and well developed Nutritional Appearance: overweight HENMT Head: normocephalic and atraumatic Ears: hearing grossly normal bilaterally Eyes General: appearance normal, both eyes and all related structures Sclera: sclerae normal Neck Neck: normal visual inspection and trachea midline Chest Chest: normal inspection of the chest Resp Effort & Inspection: normal respiratory effort and able to speak in complete sentences Cardio Rate: regular rate Rhythm: regular rhythm GI Inspection: obesity Palpation: soft and tender (RUQ tenderness to palpation) Back/Spine/Pelvis Back: normal to inspection Skin General: no rashes or lesions noted and elasticity normal Neuro General: patient alert, patient awake and patient oriented x3 Cognition: normal cognition Extrem General: full ROM Psych Appearance: grossly normal Mental Status: mental status grossly normal Affect: normal affect Attitude: cooperative Judgment: judgment good Objective Labs Result Diagrams: 08/27/22 00:59 08/27/22 00:59 Labs: Laboratory Results - last 24 hr 08/27/22 08/27/22 08/27/22 00:59 00:59 00:59 WBC 9.3 RBC 5.05 Hgb 14.8 Hct 42.9 MCV 84.9 MCH 29.3 MCHC 34.5 RDW 14.2 Plt Count 258 Neut % (Auto) 69.4 Lymph % (Auto) 22.5 L [place] % (Auto) 5.6 Eos % (Auto) 2.3 Baso % (Auto) 0.2 Neut # (Auto) 6400 Lymph # (Auto) 2100 [place] # (Auto) 500 Eos # (Auto) 200 Baso # (Auto) 0 PT INR APTT Sodium 143 Potassium 3.8 Chloride 101 Carbon Dioxide 30 BUN 17 Creatinine 0.98 Estimated GFR > 60 BUN/Creatinine Ratio 17.3 Glucose 112 H Lactate 1.0 Calcium 8.8 Magnesium Total Bilirubin 0.5 AST 31 ALT 43 Alkaline Phosphatase 65 Total Creatine Kinase CK-MB (CK-2) CK-MB (CK-2) Rel Index Troponin I NT-Pro-B Natriuret Pep Total Protein 8.0 Albumin 4.7 Globulin 3.3 Albumin/Globulin Ratio 1.4 Lipase 96 SARS-CoV-2 (PCR) Influenza A (RT-PCR) Influenza B (RT-PCR) RSV (PCR) 08/27/22 08/27/22 08/27/22 00:59 00:59 00:59 WBC RBC Hgb Hct MCV MCH MCHC RDW Plt Count Neut % (Auto) Lymph % (Auto) [place] % (Auto) Eos % (Auto) Baso % (Auto) Neut # (Auto) Lymph # (Auto) [place] # (Auto) Eos # (Auto) Baso # (Auto) PT 10.9 INR 1.0 APTT 31 Sodium Potassium Chloride Carbon Dioxide BUN Creatinine Estimated GFR BUN/Creatinine Ratio Glucose Lactate Calcium Magnesium 2.1 Total Bilirubin AST ALT Alkaline Phosphatase Total Creatine Kinase 164 CK-MB (CK-2) 1.20 CK-MB (CK-2) Rel Index 0.7 L Troponin I < 0.012 NT-Pro-B Natriuret Pep 29 Total Protein Albumin Globulin Albumin/Globulin Ratio Lipase SARS-CoV-2 (PCR) Negative Influenza A (RT-PCR) Flu a negative Influenza B (RT-PCR) Flu b negative RSV (PCR) Negative Assessment & Plan Assessment & Plan narrative: Acute cliff Plan: lap cliff COVID-19 COVID-19 status: Negative Time Spent With Patient Critical Care time: I spent a total of [] minutes of critical care time on this patient's care today; this time is exclusive of procedural time.
[2022-08-27] MEDS: CEFAZOLIN 1 GM VIAL IRR (14:15)
--- NOTE | 2022-08-27 14:33 | SUR.OPER ---
Supine on padded OR bed, head on pillow, arms secured on padded arm boards at <90 degrees abduction, legs uncrossed, safety belt at thigh, tape over blanket over lower legs. Pt positioned per direction and supervision of Dr Cheng.
[2022-08-27] MEDS: BUPIVACAINE 0.5% W/ EPI (PF) 30 ML VIAL INJ (14:40)
--- NOTE | 2022-08-27 15:16 | PM.OP.1 ---
Operative Date/Time/Diagnoses Date of procedure: 08/27/22 Time of procedure: 15:16 Pre-op diagnosis: Acute cholecystitis Post-op diagnosis: same Procedure & Clinicians Procedure: Laparoscopic cholecystectomy Same procedure as scheduled: Yes Indications: Acute cholecystitis Surgeon: Shama Cheng Click Yes if Unassisted: Yes Anesthesia Type: General Operative Notes Findings: Acute cholecystitis Closure Type: primary Specimen(s): other (Gallbladder) Estimated Blood Loss (mL): 20 Blood products transfused: none Procedure in detail: Preop diagnosis: Acute cholecystitis Postop diagnosis: Same Operative procedure: Laparoscopic cholecystectomy Surgeon: Lola Cheng MD Anesthetic: General with ET tube intubation along with local Findings: Acute cholecystitis Procedure: Patient placed in a supine position. Prepped and draped sterile fashion to expose his abdomen. Infraumbilical port site was placed using an open technique a 12 mm port. Insufflation began all other ports were placed under direct vision including a 10 mm port in the midepigastrium and 2 5 mm ports in the right lateral abdomen. Gallbladder was grasped pushed cephalad for exposure. Cystic duct was identified clipped once distally twice proximally and transected. There were 2 branches of the cystic artery both which were clipped once distally once proximally and transected. Gallbladder was removed from the fossa with electrocautery and blunt dissection. We did have spillage of bile but no stones. The operative site was irrigated to a clear return. Hemostasis was achieved with electrocautery and a large piece of Surgicel placed in the gallbladder fossa Gallbladder is placed into an Endo-Catch bag and pulled through the infraumbilical port site intact. I then surveyed the abdomen for hemostasis and then removed all ports began closure. Closure consisted of interrupted 0 Vicryl for fascial closure of the infraumbilical port site. All skin closed with a running 4-0 Vicryl. And/or Steri-Strips. Sterile dressings were placed. Patient was awakened, extubated, taken to recovery room in stable condition. Needle, instrument, sponge counts were correct. Blood loss: 20 mL Specimen: Gallbladder Complications: none Post-operative Condition: stable Disposition: PACU
[2022-08-27] MEDS: OXYCODONE/ACETAMINOPHEN 5/325 TABLET 1 TAB PO (16:14)
--- NOTE | 2022-08-27 16:31 | SUR.PHASEII ---
Spouse at bedside. Patient reported feeling dizzy. PO intake provided. Call light within reach.
== END 2022-08-27 16:57 | disposition home or self-care (01) ==
LOC: ED 00:31 → AC 06:53
PROVIDERS: Admitting Provider Surgery; Emergency Provider Emergency Medicine; PCP Student in an Organized Health Care Education/Training Program; Visit Provider Surgery
PROC: 0FT44ZZ Resection of Gallbladder, Percutaneous Endoscopic Approach (ICD-10-PCS; CPT 47562; principal; 2022-08-27 14:00)
DX: K80.00 Calculus of gallbladder with acute cholecystitis without obstruction (principal); Z20.822 Contact with and (suspected) exposure to COVID-19
CPT/HCPCS: 47562; 0241U; 36415; 76705; 80053; 81003; 82550; 82553; 83605; 83690; 83735; 83880; 84484; 85025; 85610; 85730; 93005; 93010; 96365; 96366; 96375; 99221; 99284; G0378; C9113; J0330; J0690; J1100; J1170; J2405; J2543; J2704; J3010

== ENCOUNTER → 2023-03-27 06:59 | Outpatient (CLI) | payer OTHER, SELFPAY ==
[2023-03-27 09:17] LABS: Alanine Aminotransferase 29 IU/L (<50); Albumin 4.1 g/dL (3.5-5.0); Albumin Globulin Ratio 1.5 (1.0-2.8); Alkaline Phosphatase 59 U/L (38-126); Aspartate Aminotransferase 25 IU/L (17-59); BUN Creatinine Ratio 16.8 (6-22); Bilirubin Total 0.5 mg/dL (0.2-1.3); Blood Urea Nitrogen 16 mg/dL (9-20); Calcium 8.6 mg/dL (8.4-10.2); Carbon Dioxide 25 mmol/L (22-32); Chloride 106 mmol/L (98-107); Cholesterol 142 mg/dL (140-199); Estimated Glomerular Filt Rate > 60 mL/min (>60); Globulin 2.7 g/dL (1.7-4.1); Glucose 101 mg/dL (70-100); HDL Cholesterol 43 mg/dL (40-60); HEMOLYSIS < 15 (0-50); LDL Cholesterol Calculated 75 mg/dL (<100); Potassium 3.8 mmol/L (3.4-5.1); Sodium 138 mmol/L (137-145); Total Protein 6.8 g/dL (6.3-8.2); Triglycerides 120 mg/dL (35-150)
[2023-03-27 09:23] LABS: Free T3, Triiodothyronine Free 4.21 pg/mL (2.77-5.27)
[2023-03-27 09:46] LABS: Thyroid Stimulating Hormone 2.56 uIU/mL (0.47-4.68)
[2023-03-27 09:49] LABS: Free T4, Direct Thyroxine 1.35 ng/dL (0.78-2.19)
[2023-03-28 06:07] LABS: x Labcorp Estim. Avg Glu (eAG) 114 mg/dL (.); x Labcorp Hemoglobin A1c 5.6 % (4.8-5.6)
[2023-04-03 11:16] LABS: Estrogen 61 pg/mL (56-213); Percent Free Testosterone 3.39 % (1.50-4.20); Testosterone Free 10.87 ng/dL (5.00-21.00); Testosterone Total 320.6 ng/dL (264.0-916.0)
== END ==
PROVIDERS: PCP Family Medicine; Referring Provider Family Medicine; Visit Provider Family Medicine
DX: E04.1 Nontoxic single thyroid nodule (principal); E29.9 Testicular dysfunction, unspecified; E78.5 Hyperlipidemia, unspecified
CPT/HCPCS: 36415; 80053; 80061; 82627; 82672; 83036; 84402; 84403; 84439; 84443; 84481

== ENCOUNTER → 2023-04-08 06:46 | Outpatient (CLI) | payer OTHER, SELFPAY ==
--- NOTE | 2023-04-08 06:46 | DI.US.S_ITS ---
PROCEDURE: US THYROID INDICATIONS: THYROID NODULES FOLLOW UP. LAST ULTRASOUND 2018. TECHNIQUE: Real-time scanning was performed of the thyroid gland, with image documentation. COMPARISON: [facility], [place], US THYROID, 07/28/2018, 11:39. FINDINGS: Right: Thyroid lobe measures 5.8 x 1.8 x 2 cm, and is homogeneous in echotexture. Left: Thyroid lobe measures 6.4 x 1.6 x 1.6 cm, and is homogenous in echotexture. Isthmus: 3.4 mm thick. Nodule number: 1 Right inferior measuring 7 x 8 x 6 millimeters. Solid and hypoechoic. Ill-defined margins. This is unchanged. TR 4. Nodule number: 2 Left inferior measuring 2.1 x 0.9 x 1.6 centimeters (previously 1.4 x 0.7 x 0.8 centimeters). It is solid, hypoechoic, with macro calcifications. TR 4. Nodule number: 3 Left superior measuring 0.6 x 0.8 x 0.5 centimeters, slightly larger than prior when it measures 0.4 centimeters. It is solid and isoechoic. TR 3. Nodule number: 4 Right inferior measuring 0.9 x 0.8 x 0.9 centimeters, slightly larger than prior when it measures 0.5 x 0.4 centimeters. It is solid and hypoechoic. TR 4. Incidentally noted ectasias of the right internal distal jugular vein. IMPRESSION: Thyroid nodules as above. Nodule 2 (left inferior region) with calcifications is larger than prior and meets criteria for sampling. ACR TI-RADS definitions and recommendations: TI-RADS 1 (benign): 0 points. FNA not needed. TI-RADS 2 (not suspicious): 2 points. FNA not needed. TI-RADS 3 (mildly suspicious): 3 points. * FNA if 2.5 cm or larger, follow up if 1.5 cm or larger (at 1, 3, and 5 years). TI-RADS 4 (moderately suspicious): 4-6 points. * FNA if 1.5 cm or larger, follow up if 1 cm or larger (at 1, 2, 3, and 5 years). TI-RADS 5 (highly suspicious): 7 points or more. * FNA if 1 cm or larger, follow up if 0.5 cm or larger (every year for 5 years). Dictated by: Valentin Pink M.D. on 04/08/2023 at 11:36 Approved by: Valentin Pink M.D. on 04/08/2023 at 11:40
== END ==
PROVIDERS: PCP Family Medicine; Referring Provider Family Medicine; Visit Provider Family Medicine
DX: E04.2 Nontoxic multinodular goiter (principal)
CPT/HCPCS: 76536

== ENCOUNTER → 2023-05-14 07:55 | Outpatient (CLI) | payer OTHER, SELFPAY ==
--- NOTE | 2023-05-14 | PATH_ITS ---
Note [facility] Accession Number: [id number] TESTS RESULT FLAG UNITS REF RANGE LAB Clinician Provided Cytology Information No. of containers..01 Other (Miscellaneous) No. of containers..02 Previously Prepared Cytology Slide Source: LEFT INFERIOR THYROI DIAGNOSIS: LEFT INFERIOR THYROID NODULE #2, FINE NEEDLE ASPIRATION. NEGATIVE FOR MALIGNANT CELLS. ADEQUATE FOR EVALUATION. COLLOID AND FOLLICULAR GROUPS ARE PRESENT. FAVOR BENIGN FOLLICULAR (GOITEROUS) NODULE ([place] CATEGORY II), SEE COMMENT. COMMENT: MICROSCOPIC EXAMINATION REVEALS A MILDLY CELLULAR ASPIRATE, COMPOSED OF FEW FOLLICULAR GROUPS (>6 GROUPS THAT ARE REQUIRED FOR ADEQUACY), COLLOID AND FEW MACROPHAGES. THESE FINDINGS FAVOR A BENIGN FOLLICULAR (GOITEROUS) NODULE. HOWEVER, SINCE THIS ASPIRATE IS MILDLY CELLULAR, IT MAY NOT BE SUPERVISOR DRIED YEAST OF THE PATIENT'S LESION. CORRELATION WITH CLINICAL AND RADIOGRAPHIC FINDINGS IS RECOMMENDED TO ENSURE THAT THE LESION HAS BEEN ADEQUATELY SAMPLED. ACCORDING TO THE [place] REPORTING SYSTEM FOR THYROID CYTOPATHOLOGY, THE RISK OF MALIGNANCY IN THE CATEGORY BENIGN-CATEGORY II IS 0-3%; THEREFORE RECOMMEND CONTINUED ULTRASOUND SURVEILLANCE WITH REPEAT FNA IF THE NODULE SIGNIFICANTLY INCREASES IN SIZE. Pathologist ICD10: 01 E04.2 Signed out by: Ame Saha MD, Pathologist NPI- [id number] Performed by: Dominic Suero, [employer] Init[employer] Etl Developer ([facility]) Gross description: 01 30 CC, RED, HAZY RECIEVED: IN CYTOLYT WITH 6 ALCOHOL FIXED AND 6 QUICK STAINED SLIDES ALSO 1 RNA VIAL WAS RECEIVED.VO /VDU 05/15/2023 0757 Local FLAG LEGEND: L-Low Normal,H-High Normal,LL-Alert Low,HH-Alert High <-Panic Low,>-Panic High,A-Abnormal,AA-Critical Abnormal Performed at: 01 [facility] [address] [place] [address] [address] [facility], [place] [address] Shane Miranda MD, Performed at: 01 [facility] [address] [place] [address] [address], [place], [place] [id number] MD Shane Miranda MD Phone: [phone]
--- NOTE | 2023-05-14 07:55 | DI.US.S_ITS ---
PROCEDURE: US FINE NEEDLE ASPIRATION INDICATIONS: LEFT INFERIOR THYROID NODULE #2 ASPIRATION TECHNIQUE: The indications, alternatives, benefits, risks, and complications of the procedure were explained to the patient. Written informed consent was obtained and placed in the chart. The area of interest was examined sonographically and a site was chosen for ultrasound guided percutaneous sampling. The skin was prepared and draped in the usual fashion, and anesthetized with 1% lidocaine infiltrated from the skin down to the lesion. Multiple passes were then performed, with contents emptied into an appropriate pathology specimen container. A bandage was applied to the area of access at completion of the study. COMPARISON: [facility], , THYROID, 04/08/2023, 7:07. [facility], , US THYROID, 07/28/2018, 11:39. FINDINGS: Location(s) of lesion(s) sampled: Left inferior thyroid nodule measuring 2.1 x 1.6 x 0.9 cm. Internal calcifications. [place]: 25 gauge hypodermic needles x5. 22 gauge needle x2. Medications: 1% lidocaine for local anaesthesia. Complications: None. Well tolerated by the patient. IMPRESSION: Successful ultrasound-guided left inferior thyroid nodule fine needle aspiration, with cytology results pending. Dictated by: Sarmad Smith M.D. on 05/14/2023 at 9:22 Approved by: Sarmad Smith M.D. on 05/14/2023 at 9:23
== END ==
PROVIDERS: PCP Family Medicine; Referring Provider Family Medicine; Visit Provider Family Medicine
DX: E04.2 Nontoxic multinodular goiter (principal)
CPT/HCPCS: 10005

== ENCOUNTER → 2024-06-14 10:42 | Outpatient (CLI) | payer OTHER, SELFPAY ==
[2024-06-14 11:54] LABS: Add Manual Diff / Slide Review NO; Basophils Absolute Auto 0 /uL (0-100); Basophils Percent Auto 0.6 % (0-2); Eosinophils Absolute Auto 300 /uL (0-450); Eosinophils Percent Auto 3.7 % (2-4); Hematocrit 43.4 % (41-53); Hemoglobin 15.3 g/dL (13.5-17.5); Lymphocytes Absolute Auto 2800 /uL (1100-4500); Lymphocytes Percent Auto 36.5 % (25-40); Mean Corpuscular HGB Conc 35.2 % (30-36); Mean Corpuscular Hemoglobin 30.1 PG (26-34); Mean Corpuscular Volume 85.6 fL (80-100); Monocytes Absolute Auto 500 /uL (0-900); Neutrophils Absolute Auto 4100 /uL (1500-7000); Neutrophils Percent Auto 52.2 % (50-75); Platelet Count 266 X10^3/uL (150-400); Red Blood Cell Count 5.07 X10^6/uL (4.5-5.9); Red Cell Distribution Width 14.2 % (11.6-14.8); White Blood Cell Count 7.8 X10^3/uL (4.5-11.0)
[2024-06-14 12:23] LABS: Hemoglobin A1C% w Est Avg Glu 5.4 % (4.0-6.0)
[2024-06-14 12:32] LABS: Alanine Aminotransferase 24 IU/L (<50); Albumin 4.6 g/dL (3.5-5.0); Albumin Globulin Ratio 1.6 (1.0-2.8); Alkaline Phosphatase 55 U/L (38-126); Aspartate Aminotransferase 24 IU/L (17-59); BUN Creatinine Ratio 12.5 (6-22); Bilirubin Total 0.7 mg/dL (0.2-1.3); Blood Urea Nitrogen 12 mg/dL (9-20); Calcium 9.3 mg/dL (8.4-10.2); Carbon Dioxide 30 mmol/L (22-32); Chloride 104 mmol/L (98-107); Cholesterol 169 mg/dL (140-199); Estimated Glomerular Filt Rate > 60 mL/min (>60); Globulin 2.9 g/dL (1.7-4.1); Glucose 94 mg/dL (70-100); HDL Cholesterol 54 mg/dL (40-60); HEMOLYSIS < 15 (0-50); LDL Cholesterol Calculated 90 mg/dL (<100); Potassium 4.4 mmol/L (3.4-5.1); Sodium 140 mmol/L (137-145); Total Protein 7.5 g/dL (6.3-8.2); Triglycerides 127 mg/dL (35-150)
[2024-06-14 12:36] LABS: High Sensitivity CRP - Cardiac 1.5 mg/L (1.0-3.0)
[2024-06-14 12:47] LABS: Vitamin D 25 Hydroxy (D3) 35.7 ng/mL (30.0-100.0)
[2024-06-14 13:02] LABS: TSH w/ Reflex to FT4 1.74 uIU/mL (0.47-4.68)
[2024-06-15 12:36] LABS: Insulin Level Total 11.7 uIU/mL (2.6-24.9)
== END ==
PROVIDERS: PCP Family Medicine; Referring Provider Family Medicine; Visit Provider Family Medicine
DX: Z00.00 Encounter for general adult medical examination without abnormal findings (principal); Z13.1 Encounter for screening for diabetes mellitus; E04.2 Nontoxic multinodular goiter; Z13.29 Encounter for screening for other suspected endocrine disorder; I10 Essential (primary) hypertension; E66.812 Obesity, class 2; R03.0 Elevated blood-pressure reading, without diagnosis of hypertension
CPT/HCPCS: 36415; 80053; 80061; 82306; 82627; 82670; 83036; 83525; 84402; 84403; 84443; 85025; 86140

== ENCOUNTER → 2024-07-27 07:39 | Outpatient (CLI) | payer OTHER, SELFPAY ==
--- NOTE | 2024-07-27 07:40 | DI.US.S_ITS ---
PROCEDURE: US THYROID INDICATIONS: f/u - stability of thyroid nodule TECHNIQUE: Real-time scanning was performed of the thyroid gland, with image documentation. COMPARISON: [facility], [place], US THYROID, 04/08/2023, 7:07. FINDINGS: Thyroid: Right lobe measures 5.9 x 1.9 x 1.5 cm. Left lobe measures 5.7 x 2.1 x 2.6 cm. Isthmus is 0.4 cm thick. Echotexture is homogeneous. Nodule number: 1 Location: Right mid Size: 1.0 x 0.7 x 0.9 cm compared to 0.7 x 0.8 x 0.8 cm. Composition: Solid Echogenicity: Hypoechoic Shape: wider than tall. Margins: Irregular Echogenic foci: None Total points: 4 ACR TI-RADS category: 4 Nodule number: 2 Location: Left inferior Size: 2.0 x 1.2 x 1.3 cm compared to 2.1 x 0.9 x 1.6 cm. Composition: Solid Echogenicity: Hypoechoic Shape: wider than tall. Margins: Irregular Echogenic foci: Macrocalcifications Total points: 5 ACR TI-RADS category: 5 Nodule number: 3 Location: 3 Size: 1.1 x 1.0 x 1.0 cm compared to 0.9 x 0.8 x 0.9 cm. Composition: Solid Echogenicity: Hypoechoic Shape: wider than tall. Margins: Smooth Echogenic foci: Non Total points: 4 ACR TI-RADS category: 4 Additional foci not meeting criteria for follow-up are noted. IMPRESSION: Lesion 2 is considered category 5. It is noted is been previously biopsied and overall is stable in size. Lesion 1 demonstrates slight interval increase in size, possibly due to inter exam measurement differences. Annual follow-up is recommended. Lesion 3 is considered category 4 demonstrating minimal interval increase in size versus inter exam measurement differences. Annual follow-up. ACR TI-RADS definitions and recommendations: TI-RADS 1 (benign): 0 points. FNA not needed. TI-RADS 2 (not suspicious): 2 points. FNA not needed. TI-RADS 3: 3 points. * FNA if 2.5 cm or larger, follow up if 1.5 cm or larger (at 1, 3, and 5 years). TI-RADS 4: 4-6 points. * FNA if 1.5 cm or larger, follow up if 1 cm or larger (at 1, 2, 3, and 5 years). TI-RADS 5: 7 points or more. * FNA if 1 cm or larger, follow up if 0.5 cm or larger (every year for 5 years). Dictated by: Sarah Ernandez M.D. on 07/27/2024 at 16:29 Approved by: Sarah Ernandez M.D. on 07/27/2024 at 16:32
== END ==
LOC: US 07:39
PROVIDERS: PCP Family Medicine; Referring Provider Family Medicine; Visit Provider Family Medicine
DX: E04.2 Nontoxic multinodular goiter (principal)
CPT/HCPCS: 76536

== ENCOUNTER → 2025-07-13 11:26 | Outpatient (CLI) | payer OTHER, SELFPAY ==
[2025-07-13 12:15] LABS: Add Manual Diff / Slide Review NO; Hematocrit 39.9 % (41-53); Hemoglobin 13.6 g/dL (13.5-17.5); Lymphocytes Absolute Auto 2600 /uL (1100-4500); Mean Corpuscular HGB Conc 34.2 % (30-36); Mean Corpuscular Hemoglobin 30.0 PG (26-34); Mean Corpuscular Volume 87.8 fL (80-100); Platelet Count 283 X10^3/uL (150-400)
[2025-07-13 12:27] LABS: Hemoglobin A1C% w Est Avg Glu 4.9 % (4.0-6.0)
[2025-07-13 12:38] LABS: Alanine Aminotransferase 36 IU/L (<50); Albumin 4.5 g/dL (3.5-5.0); Albumin Globulin Ratio 1.6 (1.0-2.8); Alkaline Phosphatase 45 U/L (38-126); Blood Urea Nitrogen 15 mg/dL (9-20); Calcium 8.9 mg/dL (8.4-10.2); Carbon Dioxide 26 mmol/L (22-32); Chloride 105 mmol/L (98-107); Cholesterol 164 mg/dL (140-199); Estimated Glomerular Filt Rate > 60 mL/min (>60); Globulin 2.9 g/dL (1.7-4.1); Glucose 86 mg/dL (70-99); HDL Cholesterol 71 mg/dL (40-60); HEMOLYSIS < 15 (0-50); Potassium 4.3 mmol/L (3.4-5.1); Sodium 139 mmol/L (137-145); Total Protein 7.4 g/dL (6.3-8.2); Triglycerides 121 mg/dL (35-150)
[2025-07-19 08:16] LABS: Percent Free Testosterone 1.79 % (1.50-4.20)
== END ==
PROVIDERS: PCP Family Medicine; Referring Provider Family Medicine; Visit Provider Family Medicine
DX: Z00.00 Encounter for general adult medical examination without abnormal findings (principal); R53.83 Other fatigue; E88.810 Metabolic syndrome
CPT/HCPCS: 36415; 80053; 80061; 83036; 84402; 84403; 85025

== ENCOUNTER → 2025-07-29 09:19 | Outpatient (CLI) | payer OTHER, SELFPAY ==
--- NOTE | 2025-07-29 09:21 | DI.US.S_ITS ---
PROCEDURE: US THYROID INDICATIONS: 1 year f/u on 3 thyroid nodules TECHNIQUE: Real-time scanning was performed of the thyroid gland, with image documentation. COMPARISON: [facility], [place], US FINE NEEDLE ASPIRATION, 05/14/2023, 8:15. [facility], [place], US THYROID, 07/27/2024, 7:47. FINDINGS: Thyroid: Right lobe measures 5.6 x 3.0 x 2.7 cm. Left lobe measures 6.0 x 2.1 x 1.5 cm. Isthmus is 0.5 cm thick. Echotexture is heterogeneous. Nodule number: 1 Location: Right mid inferior Size: Unchanged 1.1 cm. Composition: Solid Echogenicity: Isoechoic Shape: wider than tall. Margins: Smooth Echogenic foci: Absent Total points: 3 ACR TI-RADS category: TI rads 3 Nodule number: 2(previously biopsied). Location: Left inferior Size: Unchanged 2.0 cm. Composition: Solid Echogenicity: Hypoechoic Shape: wider than tall. Margins: Smooth Echogenic foci: Macrocalcification Total points: 6 ACR TI-RADS category: TI rads 5 Nodule number: 3 This nodule was not measured by the technologist but appears partially visible on single image of the thyroid sagittal plane on the left in the superior thyroid. Likely due to decreased cystic component and isoechoic echogenicity. Nodule number: 4 Location: Right mid posterior Size: 1.9 x 1.1 x 1.1 cm. Previously 1.1 x 1.0 x 1.0 centimeter Composition: Solid Echogenicity: Hypoechoic Shape: wider than tall. Margins: Smooth Echogenic foci: None Total points: 4 ACR TI-RADS category: TR 4 IMPRESSION: TR 4 nodule in the right posterior thyroid lobe increased in size. Further evaluation with fine-needle aspiration recommended. Additional nodules including previously biopsied left inferior nodule with macrocalcifications, unchanged in size. Previously identified left superior thyroid nodule not definitely identified on the current examination. Attention on follow-up recommended. ACR TI-RADS definitions and recommendations: TI-RADS 1 (benign): 0 points. FNA not needed. TI-RADS 2 (not suspicious): 2 points. FNA not needed. TI-RADS 3: 3 points. * FNA if 2.5 cm or larger, follow up if 1.5 cm or larger (at 1, 3, and 5 years). TI-RADS 4: 4-6 points. * FNA if 1.5 cm or larger, follow up if 1 cm or larger (at 1, 2, 3, and 5 years). TI-RADS 5: 7 points or more. * FNA if 1 cm or larger, follow up if 0.5 cm or larger (every year for 5 years). Dictated by: Raymon DEWEY Interpreted: Gael Chance MD on 07/29/2025 at 10:32 Approved by: Scott Samuel M.D. on 08/01/2025 at 11:08
== END ==
LOC: US 09:21
PROVIDERS: PCP Family Medicine; Referring Provider Family Medicine; Visit Provider Family Medicine
DX: E04.2 Nontoxic multinodular goiter (principal)
CPT/HCPCS: 76536